=== PATIENT | female | born 1965 | race Caucasian/White ===

== ENCOUNTER → 2016-10-24 | Outpatient (CLI) | payer BC ==
[~2016-10-24] MED LIST: AMPH30TA2 PO; BUPR-168 PO; BUPR150T20 PO; ESTR1PAT73 TD; ESTR1PAT81 TD; HYDR-3812 PO; HYDR-3816 PO; HYDR25TA4 PO; IBUP-1773 PO; LEVO200T6 PO; LIOT25TA3 PO
--- NOTE | 2016-10-24 11:43 | Diagnostic Imaging Report ---
EXAMINATION: Transabdominal and transvaginal pelvic ultrasound. INDICATION: Postmenopausal spotting. Pelvic pain. Patient has an IUD. FINDINGS: There is an IUD in place. In the fundal area to the right side, there is a 2.1 x 2.3 x 2.5 cm mass seen, suggestive of a fibroid. This is mostly myometrial with question of minimal impression on the endometrium and along the right arm of the IUD. The right arm of the IUD, therefore, appears to be in a slightly posterior location compared to the central plane in the uterus. The endometrial stripe is 9 mm in thickness. The ovaries are obscured by bowel gas. IMPRESSION: There is a fundal fibroid eccentric to the right side with an impression along the adjacent aspect of the endometrium and right arm of the IUD displacing it posteriorly. Dictated by: Dictated on workstation # [id number]
--- NOTE | 2016-10-25 16:48 | Diagnostic Imaging Report ---
Bilateral screening mammogram. The current study was also evaluated with a Computer Aided Detection (CAD) system. INDICATION: Screening. No current complaints stated on the questionnaire. COMPARISON: None. This is a baseline study. FINDINGS: There are bilateral retroglandular implants that appear symmetric. There is a circumscribed asymmetry measuring 6 mm seen along the upper aspect of the left MLO view seen on both the implant displaced and implant included images. The right breast demonstrates no mass, architectural distortion or suspicious cluster of calcification. IMPRESSION: Focal compression views and ultrasound evaluation for upper left breast asymmetry is recommended. ACR BI-RADS Category 0: Incomplete. (Needs additional imaging evaluation). Result letter will be mailed to the patient. Note: At least 10% of breast cancer is not imaged by mammography. Dictated by: Dictated on workstation # [id number]
== END ==
LOC: RAD 10:03
PROVIDERS: ATTEND Obstetrics & Gynecology
DX: Z12.31 Encounter for screening mammogram for malignant neoplasm of breast (principal); D25.9 Leiomyoma of uterus, unspecified; T83.32XA Displacement of intrauterine contraceptive device, initial encounter
CPT/HCPCS: 76830; 76856; 77067

== ENCOUNTER → 2016-11-12 | Outpatient (CLI) | payer BC ==
--- NOTE | 2016-11-12 13:38 | Diagnostic Imaging Report ---
EXAMINATION: Diagnostic mammogram with tomography of the left breast. The current study was also evaluated with a Computer Aided Detection (CAD) system. INDICATION: Asymmetry seen along the upper aspect of the left breast. FINDINGS: Additional spot compression view with tomography confirms the presence of a 6 mm circumscribed nodule in the upper aspect of the left breast. IMPRESSION: Confirmed circumscribed nodule in the upper aspect of the left breast. An ultrasound evaluation is pending. ACR BI-RADS Category 0: Incomplete. (Needs additional imaging evaluation). Result letter will be mailed to the patient. Note: At least 10% of breast cancer is not imaged by mammography. Dictated by: Dictated on workstation # [id number]
--- NOTE | 2016-11-12 13:41 | Diagnostic Imaging Report ---
EXAMINATION: Left breast ultrasound. INDICATION: Upper left breast nodule seen on mammography. FINDINGS: There is a simple cyst measuring 6 mm at the 2 o'clock zone 2 cm from the nipple. Otherwise, no suspicious lesion is seen in the upper outer quadrant of the left breast. IMPRESSION: The nodule seen on mammography in the upper aspect of the left breast at the 2 o'clock zone is a simple cyst. Annual screening mammograms are recommended. ACR BI-RADS Category 2: Benign findings. Dictated by: Dictated on workstation # [id number]
== END ==
LOC: RAD 09:00
PROVIDERS: ATTEND Obstetrics & Gynecology
DX: N60.02 Solitary cyst of left breast (principal)
CPT/HCPCS: 76642

== ENCOUNTER 2016-11-20 13:11 | Outpatient (CLI) | payer BC ==
[~2016-11-20] VITALS: Ht 180.3 cm; Wt 80.5 kg
[2016-11-20] MEDS ORDERED: LEVO200T6 PO (13:29)
[2016-11-20] MEDS ORDERED: LIOT25TA3 PO (13:29)
[2016-11-20 13:33] VITALS: BP 121/77
[2016-11-20] MEDS ORDERED: AMPH30TA2 PO (13:35)
[2016-11-20 14:08] LABS: BASOPHILS % (AUTO) 0 % (0-10); EOSINOPHILS # (AUTO) 0.1 10^3/uL (0.0-0.3); EOSINOPHILS % (AUTO) 1 % (0-10); LYMPHOCYTES # (AUTO) 1.5 X 10^3 (1.0-4.0); LYMPHOCYTES % (AUTO) 28 % (12-44); MEAN CORPUSCULAR HEMOGLOBIN 29 PG (25-34); MEAN CORPUSCULAR HGB CONC 34 G/DL (32-36); MEAN CORPUSCULAR VOLUME 85 FL (80-99); MEAN PLATELET VOLUME 9.7 FL (7.4-10.4); MONOCYTES # (AUTO) 0.3 X 10^3 (0.0-1.0); MONOCYTES % (AUTO) 6 % (0-12); NEUTROPHILS # (AUTO) 3.4 X 10^3 (1.8-7.8); NEUTROPHILS % (AUTO) 65 % (42-75); PLATELET COUNT 294 10^3/uL (130-400); RED BLOOD COUNT 4.47 10^6/uL (4.35-5.85); WHITE BLOOD COUNT 5.3 10^3/uL (4.3-11.0)
[2016-11-20 14:09] LABS: BILIRUBIN,URINE NEGATIVE (NEGATIVE); KETONES,URINE NEGATIVE (NEGATIVE); LEUKOCYTE ESTERASE ,URINE 1+ (NEGATIVE); NITRITE,URINE NEGATIVE (NEGATIVE); PH,URINE 7 (5-9); PROTEIN,URINE NEGATIVE (NEGATIVE); UROBILINOGEN,URINE NORMAL (NORMAL)
[2016-11-20 14:32] LABS: WBC,URINE 0-2 /HPF
== END 2016-11-20 15:00 | disposition home or self-care (01) ==
LOC: PREOP 13:11
PROVIDERS: ATTEND Obstetrics & Gynecology
DX: Z01.812 Encounter for preprocedural laboratory examination (principal); Z11.2 Encounter for screening for other bacterial diseases; D25.9 Leiomyoma of uterus, unspecified; N95.0 Postmenopausal bleeding
CPT/HCPCS: 36415; 81000; 85025; 86850; 86900; 86901; 87081

== ENCOUNTER 2016-11-27 10:14 | Day surgery (SDC) | payer BC ==
[~2016-11-27] VITALS: Ht 180.3 cm; Wt 80.5 kg
[2016-11-27 10:14] VITALS: BP 133/78
[~2016-11-27 10:14] MED LIST changes: -BUPR150T20 PO; -ESTR1PAT73 TD; -ESTR1PAT81 TD; -HYDR-3812 PO; -HYDR-3816 PO; -IBUP-1773 PO
[2016-11-27] MEDS ORDERED: ceFAZolin 1 GM/NS 50 ML IVPB IV ONE ×2 (11:00)
[2016-11-27] MEDS ORDERED: metroNIDAZOLE 500 MG/100 ML IVPB (PRE-MIX) IV ONE (11:00)
[2016-11-27] MEDS ORDERED: CATHETER FLUSH 10 ML SYR IV PRN (11:00)
--- NOTE | 2016-11-27 11:19 | Progress Note-Pre Operative ---
Pre-Operative Progress Note H&P Reviewed The H&P was reviewed, patient examined and no changes noted. Date Seen by Provider: Nov 27, 2016 Time Seen by Provider: 11:20 Date H&P Reviewed: Nov 27, 2016 Time H&P Reviewed: 11:20 Pre-Operative Diagnosis: post menopausal bleeding, uterine fibroid DAVINA GILLILAND DO Nov 27, 2016 11:19
[2016-11-27] MEDS: LACTATED RINGERS 1,000 ML IV PRN ×2 (11:30→14:07)
[2016-11-27] MEDS ORDERED: BUP/EPI 0.5% 1:200,000 (MARCAINE) 10ML VIAL IJ ONE (12:20)
[2016-11-27] MEDS ORDERED: DEXAMETHASONE PF 10 MG/ML (DECADRON) VIAL ONE (12:52)
[2016-11-27] MEDS ORDERED: ONDANSETRON 4 MG/2 ML (SDV) Z0FRAN ONE ×2 (12:52→13:48)
[2016-11-27] MEDS ORDERED: SEVOFLURANE (ULTANE) 15 ML INHAL SOLN ONE ×9 (12:52→15:16)
[2016-11-27] MEDS ORDERED: LIDOCAINE PF 2% 5 ML (XYLOCAINE) VIAL ONE (12:52)
[2016-11-27] MEDS ORDERED: fentaNYL INJECTION 100 MCG/2 ML AMP ONE ×2 (12:52→13:57)
[2016-11-27] MEDS ORDERED: proPOfol 200 MG/20 ML (DIPRIVAN) VIAL IV ONE (12:52)
[2016-11-27] MEDS ORDERED: MIDAZOLAM 2 MG/2 ML (VERSED) VIAL ONE (12:52)
[2016-11-27] MEDS ORDERED: LACTATED RINGERS 1,000 ML IV ONE ×2 (12:52→14:53)
[2016-11-27] MEDS ORDERED: HYDROmorphone (DILAUDID) 2 MG/ML VIAL ONE (13:48)
[2016-11-27] MEDS ORDERED: morphine INJ 10 MG/ML 1ML (SYR OR VIAL) ONE (13:48)
[2016-11-27] MEDS ORDERED: GLYCOPYRROLATE 0.2 MG/ML (ROBINUL) 2 ML VIAL ONE (15:16)
[2016-11-27] MEDS ORDERED: NEOSTIGMINE (BLOXIVERZ ) 1 MG/1ML 10 ML VIAL ONE (15:16)
--- NOTE | 2016-11-27 15:40 | Operative Report ---
Operative Report Date of Procedure/Surgery Nov 27, 2016 Surgeon (s) DAVINA GILLILAND DO Application Operations Engineer (s): Lou GONZALEZ FA Post-Operative Diagnosis Uterine fibroid, postmenopausal bleeding, uterine polyp, IUD Large left adnexal mass Procedure Performed CARMENZA Gonzalez Description of Procedure Anesthesia Type: General Estimated blood loss (mL): 50 Specimen(s) collected/removed Uterus, tubes, ovaries, polyp, iud Allergies and Home Medications Allergies Coded Allergies: No Known Drug Allergies (Unverified , 11/27/16) PER PREADMISSION ORDER SHEET 11/27/16 Home Medications Bupropion HCl 75 Mg Tablet, 75 MG PO DAILY, (Reported) Dextroamphetamine/Amphetamine 30 Mg Tablet, 30 MG PO DAILY, (Reported) Hydrochlorothiazide 25 Mg Tablet, 25 MG PO DAILY, (Reported) Levothyroxine Sodium 200 Mcg Tablet, 200 MCG PO DAILY, (Reported) Liothyronine Sodium 25 Mcg Tablet, 25 MCG PO DAILY, (Reported) DAVINA GILLILAND DO Nov 27, 2016 15:40
[2016-11-27] MEDS ORDERED: DOCUSATE SODIUM 100 MG (COLACE) CAP PO PRN (15:45)
[2016-11-27] MEDS ORDERED: ANTACID SUSP 30 ML UDC (MYLANTA) PO PRN (15:45)
[2016-11-27] MEDS: LACTATED RINGERS 1,000 ML IV SCH ×2 (15:57→17:50)
[2016-11-27] MEDS ORDERED: morphine INJ 10 MG/ML 1ML (SYR OR VIAL) IVP PRN (16:00)
[2016-11-27] MEDS ORDERED: PROMETHAZINE INJ 25 MG/ML (PHENERGAN) AMP IVP PRN (16:00)
[2016-11-27] MEDS ORDERED: ONDANSETRON 4 MG/2 ML (SDV) Z0FRAN IVP PRN (16:00)
[2016-11-27] MEDS ORDERED: HYDROmorphone (DILAUDID) 2 MG/ML VIAL IVP PRN (16:00)
[2016-11-27] MEDS ORDERED: KETOROLAC 30 MG/ML VIAL IVP ONE (16:00)
[2016-11-27] MEDS ORDERED: MEPERIDINE (DEMEROL) INJ 50 MG/ML IVP PRN (16:00)
[2016-11-27 16:40] VITALS: BP 125/59
[2016-11-27] MEDS ORDERED: ESTRADIOL 0.1 MG PATCH (CLIMARA) TD ONE (16:45)
[2016-11-27 17:00] VITALS: BP 123/71
[2016-11-27] MEDS ORDERED: CHLORASEPTIC LOZENGE MM PRN (17:00)
[2016-11-27 17:50] VITALS: BP 110/70
[2016-11-27] MEDS: HYDROcodone/APAP 7.5 MG/325 MG (LORTAB, LORCET PLUS) TABLET PO PRN ×3 (17:51→23:30)
[2016-11-27 20:00] VITALS: BP 127/75
[2016-11-27] MEDS: KETOROLAC 30 MG/ML VIAL IV PRN (20:42)
[2016-11-27 23:30] VITALS: BP 110/62
[2016-11-28] MEDS: LACTATED RINGERS 1,000 ML IV SCH (01:54)
[2016-11-28 04:11] VITALS: BP_SYST 100; BP_SYST 64; BP_SYST 96; BP_DIAS 62; BP_DIAS 64
[2016-11-28] MEDS: KETOROLAC 30 MG/ML VIAL IV PRN (04:11)
[2016-11-28] MEDS: HYDROcodone/APAP 7.5 MG/325 MG (LORTAB, LORCET PLUS) TABLET PO PRN ×2 (07:59→12:04)
[2016-11-28 08:00] VITALS: BP 110/65
[2016-11-28] MEDS ORDERED: ESTR1PAT73 TD (08:15)
[2016-11-28] MEDS ORDERED: HYDR-3816 PO (08:15)
[2016-11-28] MEDS ORDERED: IBUP-1773 PO (08:15)
[2016-11-28] MEDS ORDERED: IBUPROFEN 600 MG (MOTRIN) TAB PO PRN (08:15)
--- NOTE | 2016-11-28 08:17 | Discharge Inst-Women's Service ---
Discharge Inst-Women's Serv Depart Medication/Instructions New, Converted or Re-Newed RX: RX on Chart Instructions no lifting over 25 lbs, no driving for 1 weeks, nothing in the vagina for 10-12 weeks (until released) Final Diagnosis left ovarian cyst endometrial polyp Postmenopausal bleeding IUD in situ uterine fibroid Consults/Follow Up Additional Follow Up: Yes (1-2 weeks with [facility]; 10-12 weeks for exam with [facility]) Activity Activity: Activity as Tolerated Driving Instructions: No Driving for 1 Week NO SMOKING: NO SMOKING Nothing Inside Vagina: No Douching, No [place], No Tampons Diet Discharge Diet: No Restrictions Symptoms to Report to : Bleeding Excessive, Pain Increased, Fever Over 101 Degrees F, Vaginal Bleeding Increase, Cramps in Feet or Legs, Vaginal Discharge Foul For Any Problems or Questions: Contact Your Physician Skin/Wound Care Infection Signs and Symptoms: Increased Redness, Foul Odor of Wound, Increased Drainage, Skin Itchy or Has a Rash, Increased Swelling, Temperature Above 101 F Operative Area Clean and Dry: You May Remove Bandage (leave in place until follow up unless soiled or wet) Stitches/Sebree/Dermabond: Dermabond Bathing Instructions: DAVINA Delatorre DO Nov 28, 2016 8:17 am
--- NOTE | 2016-11-28 08:19 | Progress Note-Standard ---
Standard Progress Note Progress Notes/Assess & Plan Date Seen by Provider: Nov 28, 2016 Time Seen by Provider: 08:15 Progress/Assessment & Plan POD #1 s/p RaH-BSO DC today due to lateness of surgery Good urine output after catheter removed. DC home today Intake and Output 11/28/16 00:00 Intake Total 1550 ml Output Total 415 ml Balance 1135 ml Intake Oral 400 ml IV Total 1150 ml Output Urine Total 315 ml Post Void Residual 50 ml Estimated Blood Loss 50 ml VS - Last 72 Hours, by Label 11/27/16 11/27/16 11/27/16 11/27/16 10:14 13:49 16:40 17:00 Temp 98.9 98.0 96.8 97.3 Pulse 99 72 73 Resp 18 18 18 B/P (MAP) 133/78 125/59 123/71 Pulse Ox 98 100 100 O2 Delivery Room Air Room Air Room Air 11/27/16 11/27/16 11/27/16 11/28/16 17:50 20:00 23:30 04:11 Temp 97.8 96.2 98.0 98.0 Pulse 71 68 75 69 Resp 18 18 18 18 B/P (MAP) 110/70 127/75 110/62 100/64 Pulse Ox 100 98 98 95 O2 Delivery Room Air Room Air Room Air Room Air 11/28/16 08:00 Temp 99.0 Pulse 84 Resp 18 B/P (MAP) 110/65 Pulse Ox 100 O2 Delivery Room Air Laboratory Tests Test 11/27/16 10:20 Range/Units Urine Test NEGATIVE NEGATIVE DAVINA GILLILAND DO Nov 28, 2016 08:19
[2016-11-28 12:00] VITALS: BP 124/62
[2016-11-28 12:05] VITALS: BP 124/62
== END 2016-11-28 12:05 | disposition home or self-care (01) ==
LOC: SDC 10:14 → WS 16:48 → SDC 11-28 12:05
PROVIDERS: ATTEND Obstetrics & Gynecology
DX: D25.1 Intramural leiomyoma of uterus (principal); N95.0 Postmenopausal bleeding; N84.0 Polyp of corpus uteri; N84.1 Polyp of cervix uteri; N83.8 Other noninflammatory disorders of ovary, fallopian tube and broad ligament; N73.6 Female pelvic peritoneal adhesions (postinfective); N70.11 Chronic salpingitis; N80.2 Endometriosis of fallopian tube; G43.909 Migraine, unspecified, not intractable, without status migrainosus; F41.9 Anxiety disorder, unspecified; F32.9 Major depressive disorder, single episode, unspecified; Z79.899 Other long term (current) drug therapy
CPT/HCPCS: 84703; 88307; 94664; 96361; 96375; 96376

== ENCOUNTER 2016-12-04 21:19 | Emergency (ER) | payer BC ==
[~2016-12-04] VITALS: Ht 180.3 cm; Wt 80.3 kg
[~2016-12-04 21:19] MED LIST changes: +ESTR1PAT73 TD; +HYDR-3816 PO; +IBUP-1773 PO
[2016-12-04 22:33] LABS: BASOPHILS % (AUTO) 0 % (0-10); EOSINOPHILS # (AUTO) 0.1 10^3/uL (0.0-0.3); EOSINOPHILS % (AUTO) 1 % (0-10); LYMPHOCYTES # (AUTO) 1.5 X 10^3 (1.0-4.0); LYMPHOCYTES % (AUTO) 20 % (12-44); MEAN CORPUSCULAR HEMOGLOBIN 28 PG (25-34); MEAN CORPUSCULAR HGB CONC 33 G/DL (32-36); MEAN CORPUSCULAR VOLUME 86 FL (80-99); MEAN PLATELET VOLUME 9.3 FL (7.4-10.4); MONOCYTES # (AUTO) 0.7 X 10^3 (0.0-1.0); MONOCYTES % (AUTO) 9 % (0-12); NEUTROPHILS # (AUTO) 5.4 X 10^3 (1.8-7.8); NEUTROPHILS % (AUTO) 70 % (42-75); PLATELET COUNT 353 10^3/uL (130-400); RED BLOOD COUNT 4.37 10^6/uL (4.35-5.85); RED CELL DISTRIBUTION WIDTH 12.3 % (10.0-14.5); WHITE BLOOD COUNT 7.7 10^3/uL (4.3-11.0)
[2016-12-04 22:43] LABS: INR 0.9 (0.8-1.4); PROTHROMBIN TIME PATIENT 12.2 SEC (12.2-14.7)
[2016-12-04 22:51] LABS: ALANINE AMINOTRANSFERASE 100 U/L (0-55); ALBUMIN 4.1 GM/DL (3.2-4.5); ANION GAP 13 MMOL/L (5-14); ASPARTATE AMINO TRANSFERASE 24 U/L (5-34); BILIRUBIN,TOTAL 0.5 MG/DL (0.1-1.0); BLOOD UREA NITROGEN 13 MG/DL (7-18); BUN/CREATININE RATIO 15; CALCIUM 10.1 MG/DL (8.5-10.1); CARBON DIOXIDE 27 MMOL/L (21-32); CHLORIDE 99 MMOL/L (98-107); CREATININE SERUM 0.84 MG/DL (0.60-1.30); GFR ESTIMATED > 60; GLUCOSE 96 MG/DL (70-105); POTASSIUM 3.4 MMOL/L (3.6-5.0); SODIUM 139 MMOL/L (135-145)
[2016-12-04 23:55] VITALS: BP 133/94
--- NOTE | 2016-12-05 06:44 | Diagnostic Imaging Report ---
PROCEDURE: US left lower extremity venous. TECHNIQUE: Multiple real-time grayscale images were obtained over the left lower extremity in various projections. Additional duplex Doppler and color Doppler images were also obtained. INDICATION: Left leg pain, recent hysterectomy. FINDINGS: Left lower extremity femoral-popliteal deep venous system is patent. No deep or superficial thrombi. No mass or fluid collection documented. IMPRESSION: Normal negative unilateral left lower extremity venous Doppler and ultrasound exam. Dictated by: Dictated on workstation # [id number]
== END 2016-12-04 23:55 | disposition home or self-care (01) ==
LOC: EDUNIT# 21:19 → ER 21:21
DX: M79.662 Pain in left lower leg (principal)
CPT/HCPCS: 36415; 80053; 85025; 85610; 85730; 99282

== ENCOUNTER 2017-02-18 05:49 | Outpatient (CLI) | payer BC ==
[~2017-02-18] VITALS: Ht 180.3 cm; Wt 80.3 kg
[2017-02-18] MEDS ORDERED: ESTR1PAT73 TD (11:52)
== END 2017-02-18 11:57 ==
LOC: PREOP 05:49
PROVIDERS: ATTEND Surgery
DX: Z01.818 Encounter for other preprocedural examination (principal); L72.3 Sebaceous cyst

== ENCOUNTER 2018-12-01 16:12 | Outpatient (CLI) | payer OTHER ==
[~2018-12-01] VITALS: Ht 180.3 cm; Wt 78.0 kg
[~2018-12-01 16:12] MED LIST changes: +ACHD5005 PO; +BUPR150T20 PO; +ESTR1PAT81 TD; +HYDR-34 PO; -HYDR-3816 PO; +LIOT25TA PO; -LIOT25TA3 PO
[2018-12-01] MEDS ORDERED: WATER (STERILE) FOR INJECTION 10 ML ONE (16:25)
[2018-12-01] MEDS ORDERED: cefTRIAXone 1,000 MG IV (ROCEPHIN) VIAL ONE (16:25)
[2018-12-01] MEDS ORDERED: NS IV 1000 ML 1,000 ML ONE (16:25)
--- NOTE | 2018-12-01 16:30 | NUR ---
CLEAN CATCH KIT USED AND URINE COLLECTED FOR UA, C&S PRN, LABELED AND SENT TO LAB. C/O HEADACHE RATED 10/NUMERIC SCALE, MILD NAUSEA ON ADMIT AND >1 WK HX OF N/V, FEVER, HEADACHE WITH SINUS PRESSURE AND MALAISE.
[2018-12-01] MEDS ORDERED: NS IV 1000 ML 1,000 ML IV ONE (16:45)
[2018-12-01] MEDS ORDERED: cefTRIAXone 1,000 MG/SWFI 10 ML IV PUSH IV ONE ×2 (16:45)
[2018-12-01] MEDS ORDERED: PROMETHAZINE INJ 25 MG/ML (PHENERGAN) AMP IV PRN (16:45)
[2018-12-01] MEDS ORDERED: KETOROLAC 30 MG/ML VIAL IM ONE (16:45)
[2018-12-01 17:01] LABS: BILIRUBIN,URINE NEGATIVE (NEGATIVE); COLOR,URINE YELLOW; GLUCOSE, URINE (UA) NEGATIVE (NEGATIVE); KETONES,URINE NEGATIVE (NEGATIVE); LEUKOCYTE ESTERASE ,URINE NEGATIVE (NEGATIVE); NITRITE,URINE NEGATIVE (NEGATIVE); PH,URINE 8 (5-9); PROTEIN,URINE NEGATIVE (NEGATIVE); UROBILINOGEN,URINE NORMAL (NORMAL)
[2018-12-01 17:03] LABS: HEMOGLOBIN 12.9 G/DL (11.5-16.0); MEAN PLATELET VOLUME 8.6 FL (7.4-10.4); RED CELL DISTRIBUTION WIDTH 12.5 % (10.0-14.5)
[2018-12-01 17:08] LABS: CLARITY,URINE SL CLOUDY
[2018-12-01 17:10] LABS: AMORPHOUS SEDIMENT,UR FEW AMOR PHOSPHATE /LPF; BACTERIA,URINE MODERATE /HPF; WBC,URINE 0-2 /HPF
--- NOTE | 2018-12-01 17:11 | NUR ---
SMALL AMOUNT OF CLEAR EMESIS AND DRY HEAVING. PHENERGAN 25 MG GIVEN IV.
[2018-12-01 17:21] LABS: ALANINE AMINOTRANSFERASE 22 U/L (0-55); ALBUMIN 3.8 GM/DL (3.2-4.5); ALKALINE PHOSPHATASE 97 U/L (40-136); BILIRUBIN,TOTAL 0.5 MG/DL (0.1-1.0); BUN/CREATININE RATIO 22; CALCIUM 9.9 MG/DL (8.5-10.1); CARBON DIOXIDE 31 MMOL/L (21-32); CHLORIDE 94 MMOL/L (98-107); CREATININE SERUM 0.95 MG/DL (0.60-1.30); GFR ESTIMATED > 60; GLUCOSE 111 MG/DL (70-105); POTASSIUM 2.8 MMOL/L (3.6-5.0); SODIUM 136 MMOL/L (135-145); TOTAL PROTEIN 6.7 GM/DL (6.4-8.2)
--- NOTE | 2018-12-01 17:28 | NUR ---
LABS FAXED TO DR MENDEZ'S OFFICE. CONTACTED BART POMPA TO VERIFY RECEIPT OF LABS. ORDER RECEIVED FOR POTASSIUM 40 MEQ PO X1 DOSE.
[2018-12-01] MEDS ORDERED: KCL 20 MEQ TAB (K-DUR) PO ONE (17:45)
--- NOTE | 2018-12-01 17:56 | NUR ---
ADDITIONAL LAB FAXED TO DR MENDEZ'S OFFICE WITH CALL TO VERIFY RECEIPT.
[2018-12-01 18:15] VITALS: BP 108/73
--- NOTE | 2018-12-01 18:15 | NUR ---
INFUSION COMPLETE. STATES NAUSEA IS BETTER, HEADACHE SLIGHTLY BETTER. STATES SHE WILL RETAIL SHIFT SUPERVISOR PRESCRIPTIONS THAT HAVE BEEN SENT BY BART POMPA AND FOLLOW UP WITH HER TOMORROW BY PHONE INSTRUCTED.
== END 2018-12-01 18:15 | disposition home or self-care (01) ==
LOC: SDC 16:12
PROVIDERS: ATTEND Nurse Practitioner Family
DX: J32.9 Chronic sinusitis, unspecified (principal); E86.0 Dehydration; R11.0 Nausea
CPT/HCPCS: 36415; 80053; 81000; 84443; 85027; 87088; 96360; 96372; 96374; 96375

== ENCOUNTER → 2018-12-03 | Outpatient (CLI) | payer OTHER ==
[2018-12-03 14:36] LABS: POTASSIUM 3.1 MMOL/L (3.6-5.0)
== END ==
LOC: LAB 14:09
PROVIDERS: ATTEND Family Medicine
DX: E87.6 Hypokalemia (principal)
CPT/HCPCS: 36415; 80051

== ENCOUNTER 2019-04-03 08:32 | Outpatient (RCR) | payer OTHER | END 2019-04-03 09:10 | disposition home or self-care (01) | PROVIDERS: ATTEND Family Medicine | DX: F32.9 Major depressive disorder, single episode, unspecified (principal); R10.32 Left lower quadrant pain; M25.552 Pain in left hip; Z85.850 Personal history of malignant neoplasm of thyroid; Z90.89 Acquired absence of other organs ==

== ENCOUNTER 2019-07-08 19:37 | Emergency (ER) | payer OTHER ==
[~2019-07-08] VITALS: Ht 177.8 cm; Wt 78.2 kg
[~2019-07-08 19:37] MED LIST changes: -BUPR150T20 PO; +BUPR150T28 PO; -LIOT25TA PO; +LIOT25TA11 PO
[2019-07-08] MEDS ORDERED: KETOROLAC 30 MG/ML VIAL IVP ONE (19:45)
[2019-07-08] MEDS ORDERED: fentaNYL INJECTION 100 MCG/2 ML AMP IVP ONE (19:45)
--- NOTE | 2019-07-08 19:49 | ED Respiratory ---
General Chief Complaint: Respiratory Problems Stated Complaint: SOA Source: patient Exam Limitations: no limitations History of Present Illness Date Seen by Provider: Jul 08, 2019 Time Seen by Provider: 19:47 Initial Comments To ER with reports of shortness of breath sudden on onset about 2 hours ago. This began while getting out of the car, the pain is sharp, left-sided thoracic, pain is very intense with deep breathing and so intense that it keeps her from b eing able to breathe deeply. No fevers, no cough, no recent illness. This feels similar to pleurisy that she has had a couple of years ago. She did have influenza about 3 weeks ago. Timing/Duration: constant Severity: moderate Allergies and Home Medications Allergies Coded Allergies: Penicillins (Unverified Allergy, Unknown, 12/01/18) azithromycin (Unverified Allergy, Unknown, 12/01/18) Home Medications Bupropion HCl 150 Mg Tablet.er, 150 MG PO DAILY, (Reported) Dextroamphetamine/Amphetamine 30 Mg Tablet, 30 MG PO DAILY, (Reported) Estradiol 1 Each Patch.tdwk, 1 EACH TD Weekly, (Reported) Hydrochlorothiazide 25 Mg Tablet, 25 MG PO DAILY, (Reported) Hydrocodone Bit/Acetaminophen 1 Each Tablet, 1-2 TAB PO 4-6HR PRN for PAIN Prescribed by: MARINE BRAGG on 02/22/17 1008 Hydrocodone/Acetaminophen 1 Each Tablet, 1 TAB PO Q6H Prescribed by: ALLYN ROSE on 07/08/19 2109 Levothyroxine Sodium 200 Mcg Tablet, 200 MCG PO DAILY, (Reported) Liothyronine Sodium 25 Mcg Tablet, 25 MCG PO DAILY, (Reported) Patient Home Medication List Home Medication List Reviewed: Yes Review of Systems Review of Systems Constitutional: see HPI; No chills, No fever EENTM: see HPI Respiratory: no symptoms reported Cardiovascular: no symptoms reported Genitourinary: no symptoms reported Musculoskeletal: no symptoms reported Skin: no symptoms reported Psychiatric/Neurological: No Symptoms Reported Hematologic/Lymphatic: No Symptoms Reported Past Axbmxro-Uecoqa-Tjtbaf Hx Patient Social History Alcohol Use: Denies Use Number of Drinks Today: Alcohol Beverage of Choice: Wine Recreational Drug Use: No Smoking Status: Never a Smoker 2nd Hand Smoke Exposure: No Recent Foreign Travel: No Contact w/Someone Who Travel: No Recent Hopitalizations: No Physical Abuse: No Sexual Abuse: No Mistreated: No Fear: No Immunizations Up To Date Tetanus Booster (TDap): Unknown Seasonal Allergies Seasonal Allergies: Yes Past Medical History Surgeries: Yes (LIPOMA FROM SIDE) Breast, Hysterectomy, Oophorectomy, Orthopedic, Thyroidectomy Respiratory: No Cardiac: No Neurological: Yes Headaches /Migraines Reproductive Disorders: Yes Female Reproductive Disorders: Denies WRECKER DRIVER History: Hysterectomy Sexually Transmitted Disease: No HIV/AIDS: No Genitourinary: Yes Kidney Stones Gastrointestinal: Yes Chronic Constipation Musculoskeletal: No Endocrine: Yes (THYROID CANCER) Hypothyroidsim HEENT: No Loss of Vision: Bilateral Hearing Impairment: Denies Cancer: Yes (S/P SURGERY AND RADIOACTIVE IODINE TREATMENT) Thyroid Psychosocial: Yes Anxiety, Depression Integumentary: No Blood Disorders: Yes (HX OF ANEMIA) Adverse Reaction/Blood Tranf: No Physical Exam Vital Signs - First Documented 07/08/19 19:39 Temp 36.0 Pulse 91 Resp 20 B/P (MAP) 147/109 (122) Pulse Ox 95 O2 Delivery Room Air Capillary Refill : Height: 5'11.00" Weight: 172lbs. 0.0oz. 78.774747sv; 24.7 BMI Method:Stated General Appearance: WD/WN, moderate distress Eyes: Bilateral Eye Normal Inspection, Bilateral Eye PERRL, Bilateral Eye EOMI HEENT: PERRL/EOMI Respiratory: no respiratory distress, no accessory muscle use Gastrointestinal: normal bowel sounds, soft Extremities: normal range of motion, non-tender Neurologic/Psychiatric: alert, normal mood/affect, oriented x 3 Skin: normal color, warm/dry Progress/Results/Core Measures Suspected Sepsis SIRS Temperature: Pulse: Respiratory Rate: Laboratory Tests 07/08/19 19:43: White Blood Count 8.8 Blood Pressure / Mean: Laboratory Tests 07/08/19 19:43: Creatinine 1.13, INR Comment 0.9, Platelet Count 333, Total Bilirubin 0.6 Results/Orders Lab Results Laboratory Tests Test 07/08/19 19:43 Range/Units White Blood Count 8.8 4.3-11.0 10^3/uL Red Blood Count 4.47 4.35-5.85 10^6/uL Hemoglobin 13.8 11.5-16.0 G/DL Hematocrit 41 35-52 % Mean Corpuscular Volume 92 80-99 FL Mean Corpuscular Hemoglobin 31 25-34 PG Mean Corpuscular Hemoglobin Concent 33 32-36 G/DL Red Cell Distribution Width 13.8 10.0-14.5 % Platelet Count 333 130-400 10^3/uL Mean Platelet Volume 9.2 7.4-10.4 FL Neutrophils (%) (Auto) 74 42-75 % Lymphocytes (%) (Auto) 18 12-44 % Monocytes (%) (Auto) 6 0-12 % Eosinophils (%) (Auto) 1 0-10 % Basophils (%) (Auto) 0 0-10 % Neutrophils # (Auto) 6.5 1.8-7.8 X 10^3 Lymphocytes # (Auto) 1.6 1.0-4.0 X 10^3 Monocytes # (Auto) 0.6 0.0-1.0 X 10^3 Eosinophils # (Auto) 0.1 0.0-0.3 10^3/uL Basophils # (Auto) 0.0 0.0-0.1 10^3/uL Prothrombin Time 12.8 12.2-14.7 SEC INR Comment 0.9 0.8-1.4 Activated Partial Thromboplast Time 26 24-35 SEC Carbon Dioxide Level 27 21-32 MMOL/L Blood Urea Nitrogen 19 H 7-18 MG/DL Creatinine 1.13 0.60-1.30 MG/DL Estimat Glomerular Filtration Rate 51 BUN/Creatinine Ratio 17 Glucose Level 109 H 70-105 MG/DL Calcium Level 10.1 8.5-10.1 MG/DL Corrected Calcium 9.7 8.5-10.1 MG/DL Magnesium Level 2.1 1.6-2.4 MG/DL Total Bilirubin 0.6 0.1-1.0 MG/DL Aspartate Amino Transf (AST/SGOT) 14 5-34 U/L Alanine Aminotransferase (ALT/SGPT) 23 0-55 U/L Alkaline Phosphatase 75 40-136 U/L Myoglobin 52.4 10.0-92.0 NG/ML Troponin I < 0.028 <0.028 NG/ML B-Type Natriuretic Peptide 31.1 <100.0 PG/ML Total Protein 7.8 6.4-8.2 GM/DL Albumin 4.5 3.2-4.5 GM/DL My Orders Orders - ALLYN ROSE MANPOWER DEVELOPMENT ADVISOR Cbc With Automated Diff (07/08/19 19:44) Magnesium (07/08/19 19:44) Chest 1 View, Ap/Pa Only (07/08/19 19:44) Ekg Tracing (07/08/19:44) Comprehensive Metabolic Panel (07/08/19 19:44) Myoglobin Serum (07/08/19 19:44) Protime With Inr (07/08/19 19:44) Partial Thromboplastin Time (07/08/19 19:44) O2 (07/08/19 19:44) Monitor-Rhythm Ecg Trace Only (07/08/19 19:44) Lipid Panel (07/09/19 06:00) Ed Iv/Invasive Line Start (07/08/19 19:44) BNP (07/08/19:44) Troponin I (07/08/19 19:44) Ketorolac Injection (Toradol Injection) (07/08/19 19:45) Fentanyl Injection (Sublimaze Injection (07/08/19 19:45) Ct Angio Chest W (07/08/19 19:46) Lactated Ringers (Lr 1000 Ml Iv Solution (07/08/19 20:30) Iohexol Injection (Omnipaque 350 Mg/Ml 1 (07/08/19 20:30) Received Contrast (Hold Metformin- Contr (07/08/19 20:30) Ns (Ivpb) (Sodium Chloride 0.9% Ivpb Bag (07/08/19 20:30) Rx-Hydrocodone/Apap 5-325 Mg (Rx-Vicodin (07/08/19 21:00) Medications Given in ED Current Medications Medications Dose Ordered Sig/Dao Route Start Time Stop Time Status Last Admin Dose Admin Acetaminophen/ Hydrocodone Bitart 1 ea Q4H PRN PO 07/08/19 21:00 07/08/19 21:05 1 EA Fentanyl Citrate 50 mcg ONCE ONCE IVP 07/08/19 19:45 07/08/19 19:46 DC 07/08/19 19:52 50 MCG Iohexol 100 ml ONCE ONCE IV 07/08/19 20:30 07/08/19 20:31 DC 07/08/19 20:43 100 ML Ketorolac Tromethamine 15 mg ONCE ONCE IVP 07/08/19 19:45 07/08/19 19:46 DC 07/08/19 19:51 15 MG Sodium Chloride 100 ml ONCE ONCE IV 07/08/19 20:30 07/08/19 20:31 DC 07/08/19 20:43 100 ML Vital Signs/I&O 07/08/19 19:39 Temp 36.0 Pulse 91 Resp 20 B/P (MAP) 147/109 (122) Pulse Ox 95 O2 Delivery Room Air Capillary Refill : Departure Communication (Admissions) Differential includes pleurisy versus thoracic disc herniation versus costovertebral joint dysfunction. Impression Primary Impression: posterior chest wall pain Disposition: HOME, SELF-CARE Condition: Stable Departure-Patient Inst. Decision time for Depature: 20:57 Referrals: GUANAKO WEBB MD (PCP/Family) Primary Care Physician Patient Instructions: Pleuritic Chest Pain (DC) Add. Discharge Instructions: Call Dr. Webb tomorrow to make an appointment to be seen for follow-up. Return to ER for any worsening symptoms or other concerns. All discharge instructions reviewed with patient and/or family. Voiced understanding. Scripts Hydrocodone/Acetaminophen (Hydrocodone/Acetaminophen 5 MG/325 MG TAB) 1 Each Tablet 1 TAB PO Q6H for Pain MDD 10 TABS for 7 Days, #14 TAB Prov: ALLYN ROSE APRN 07/08/19 Copy Copies To 1: GUANAKO WEBB MD, PETER J APRN Jul 08, 2019 19:48
[2019-07-08 19:55] LABS: BASOPHILS % (AUTO) 0 % (0-10); EOSINOPHILS # (AUTO) 0.1 10^3/uL (0.0-0.3); EOSINOPHILS % (AUTO) 1 % (0-10); HEMATOCRIT 41 % (35-52); HEMOGLOBIN 13.8 G/DL (11.5-16.0); LYMPHOCYTES # (AUTO) 1.6 X 10^3 (1.0-4.0); LYMPHOCYTES % (AUTO) 18 % (12-44); MEAN CORPUSCULAR HEMOGLOBIN 31 PG (25-34); MEAN CORPUSCULAR HGB CONC 33 G/DL (32-36); MEAN CORPUSCULAR VOLUME 92 FL (80-99); MEAN PLATELET VOLUME 9.2 FL (7.4-10.4); MONOCYTES # (AUTO) 0.6 X 10^3 (0.0-1.0); MONOCYTES % (AUTO) 6 % (0-12); NEUTROPHILS # (AUTO) 6.5 X 10^3 (1.8-7.8); NEUTROPHILS % (AUTO) 74 % (42-75); PLATELET COUNT 333 10^3/uL (130-400); RED CELL DISTRIBUTION WIDTH 13.8 % (10.0-14.5); WHITE BLOOD COUNT 8.8 10^3/uL (4.3-11.0)
[2019-07-08 20:07] LABS: INR 0.9 (0.8-1.4); PROTHROMBIN TIME PATIENT 12.8 SEC (12.2-14.7)
[2019-07-08 20:15] LABS: ALBUMIN 4.5 GM/DL (3.2-4.5); BILIRUBIN,TOTAL 0.6 MG/DL (0.1-1.0); CALCIUM 10.1 MG/DL (8.5-10.1); CREATININE SERUM 1.13 MG/DL (0.60-1.30); MAGNESIUM 2.1 MG/DL (1.6-2.4); TOTAL PROTEIN 7.8 GM/DL (6.4-8.2)
--- NOTE | 2019-07-08 20:17 | Diagnostic Imaging Report ---
INDICATION: Pain between the shoulder blades. Dry cough, short of air. Upright chest shows normal heart size and vascularity. The lungs are clear. There is no effusion or pneumothorax. IMPRESSION: Normal chest. Dictated by: Dictated on workstation # [id number]
[2019-07-08] MEDS ORDERED: NS 100 ML (IVPB) BAG IV ONE (20:30)
[2019-07-08] MEDS ORDERED: LACTATED RINGERS 1,000 ML IV SCH (20:30)
[2019-07-08] MEDS ORDERED: IOHEXOL 350 MG/ML 100 ML (OMNIPAQUE 350) VIAL IV ONE (20:30)
[2019-07-08] MEDS ORDERED: HOLD METFORMIN - RECEIVED CONTRAST 20 ML VIAL IV SCH (20:30)
--- NOTE | 2019-07-08 20:53 | Diagnostic Imaging Report ---
PROCEDURE: CT angiography of the chest with contrast. TECHNIQUE: Multiple contiguous axial images were obtained through the chest after uneventful bolus administration of intravenous contrast. 3D reconstructed CTA MIP acquisitions were also performed. Auto Exposure Controls were utilized during the CT exam to meet ALARA standards for radiation dose reduction. INDICATION: Chest pain, short of air, cough The lungs are clear. There is no effusion or pneumothorax. There is no mediastinal mass or hemorrhage. There is no aortic aneurysm or dissection. There is no pulmonary embolus. IMPRESSION: No acute abnormality is seen. Dictated by: Dictated on workstation # [id number]
[2019-07-08] MEDS ORDERED: RX-HYDROCODONE/APAP 5/325 MG #4 TAB PK PO PRN (21:00)
[2019-07-08] MEDS ORDERED: HYDR-4226 PO (21:08)
[2019-07-08 21:13] VITALS: BP 122/78
== END 2019-07-08 21:13 | disposition home or self-care (01) ==
LOC: EDUNIT# 19:37 → ER 19:38
DX: R07.89 Other chest pain (principal); E03.9 Hypothyroidism, unspecified; F41.9 Anxiety disorder, unspecified; F32.9 Major depressive disorder, single episode, unspecified; Z85.850 Personal history of malignant neoplasm of thyroid; Z88.0 Allergy status to penicillin; Z88.1 Allergy status to other antibiotic agents; Z79.52 Long term (current) use of systemic steroids
CPT/HCPCS: 36415; 71045; 71275; 80053; 83735; 83874; 83880; 84484; 85025; 85610; 85730; 93005; 93041